=== PATIENT | male | born 1985 | race Two or more races ===

== ENCOUNTER 2019-03-04 03:38 | Emergency (ER) | payer SELFPAY ==
[~2019-03-04] VITALS: Ht 185.4 cm; Wt 97.5 kg
[2019-03-04 04:03] VITALS: BP 148/91
== END 2019-03-04 07:00 | disposition left against medical advice (07) ==
LOC: ER 03:38
DX: N50.811 Right testicular pain (principal); Z53.21 Procedure and treatment not carried out due to patient leaving prior to being seen by health care provider